=== PATIENT | male | born 1990 | race Caucasian/White ===

== ENCOUNTER 2016-10-09 16:10 | Emergency (ER) | payer OTHER ==
[~2016-10-09] VITALS: Ht 162.6 cm; Wt 60.0 kg
[~2016-10-09 16:10] MED LIST: ADVIL200 MG PO; PERCOCET 5/31 TABLET PO; ROXICODONE5 MG PO
[2016-10-09] MEDS ORDERED: KEFLEX500 MG PO (17:42)
[2016-10-09 18:26] VITALS: BP 122/72
== END 2016-10-09 18:26 | disposition home or self-care (01) ==
LOC: EME 16:10
PROC: 3E0234Z Introduction of Serum, Toxoid and Vaccine into Muscle, Percutaneous Approach (ICD-10-PCS; principal; 2016-10-09)
DX: S61.012A Laceration without foreign body of left thumb without damage to nail, initial encounter (principal); Z23 Encounter for immunization; Z02.79 Encounter for issue of other medical certificate; W26.0XXA Contact with knife, initial encounter; F17.200 Nicotine dependence, unspecified, uncomplicated
CPT/HCPCS: 99281; 99283

== ENCOUNTER 2016-10-29 13:07 | Emergency (ER) | payer OTHER ==
[~2016-10-29] VITALS: Ht 162.6 cm; Wt 59.9 kg
[~2016-10-29 13:07] MED LIST changes: +KEFLEX500 MG PO
[2016-10-29] MEDS ORDERED: AFRIN,GENASAL D15 ML BOTH NARES (15:05)
[2016-10-29 15:36] VITALS: BP 126/83
== END 2016-10-29 15:36 | disposition home or self-care (01) ==
LOC: EME 13:07
DX: H65.92 Unspecified nonsuppurative otitis media, left ear (principal); J06.9 Acute upper respiratory infection, unspecified
CPT/HCPCS: 70450; 99281; 99284

== ENCOUNTER 2017-10-15 12:32 | Emergency (ER) | payer OTHER ==
[~2017-10-15] VITALS: Ht 162.6 cm; Wt 58.3 kg
[~2017-10-15 12:32] MED LIST changes: +AFRIN,GENASAL D15 ML BOTH NARES
[2017-10-15] MEDS ORDERED: TESSALON200 MG PO (14:06)
[2017-10-15 14:26] VITALS: BP 116/84
== END 2017-10-15 14:27 | disposition home or self-care (01) ==
LOC: EME 12:32
DX: J06.9 Acute upper respiratory infection, unspecified (principal); F17.200 Nicotine dependence, unspecified, uncomplicated
CPT/HCPCS: 99281; 99283